=== PATIENT | male | born 1955 | race Hispanic/Latino ===

== ENCOUNTER 2020-11-08 19:34 | Emergency (ER) | payer MEDICARE ==
[~2020-11-08] VITALS: Ht 167.6 cm; Wt 81.6 kg
== END 2020-11-08 22:41 | disposition home or self-care (01) ==
LOC: ER 20:33
DX: S00.83XA Contusion of other part of head, initial encounter (principal); W18.30XA Fall on same level, unspecified, initial encounter; I10 Essential (primary) hypertension; E11.9 Type 2 diabetes mellitus without complications; F20.9 Schizophrenia, unspecified; F17.210 Nicotine dependence, cigarettes, uncomplicated
CPT/HCPCS: 70450; 72125; 99283

== ENCOUNTER 2020-11-22 15:44 | Inpatient (IN) | payer MEDICARE ==
[~2020-11-22] VITALS: Ht 165.1 cm; Wt 79.8 kg
[2020-11-22] MEDS ORDERED: DEXTROSE 50% SYRINGE 50 ML IV ONE (16:26)
[2020-11-22 16:53] LABS: BASOPHILS % 0.3 % (0.0-1.0); EOSINOPHILS # (AUTO) 0.2 (0.0-0.4); EOSINOPHILS % 1.8 % (0.0-6.0); HEMATOCRIT 43.2 % (38.2-49.6); HEMOGLOBIN 15.3 g/dL (14.0-18.0); LYMPHOCYTES # (AUTO) 2.4 (1.0-3.2); LYMPHOCYTES % 22.9 % (18.0-39.1); MEAN CORPUSCULAR HEMOGLOBIN 32.6 pg (28-32); MEAN CORPUSCULAR HGB CONC 35.4 g/dL (31-35); MEAN CORPUSCULAR VOLUME 91.9 fL (81-99); MONOCYTES # (AUTO) 1.1 (0.2-0.8); NEUTROPHILS # (AUTO) 6.6 (2.1-6.9); NEUTROPHILS % 63.7 % (38.7-80.0); PLATELET COUNT 158 x10e3/uL (140-360)
[2020-11-22 17:07] LABS: ALBUMIN 3.8 g/dL (3.5-5.0); ALBUMIN/GLOBULIN RATIO 1.1 (0.8-2.0); ANION GAP 15.8 mmol/L (8-16); CREATININE, SERUM 0.71 mg/dL (0.72-1.25)
[2020-11-22] MEDS: DEXTROSE 5%/0.45% SOD CHL 1,000 ML IV STA ×2 (17:07→18:00)
[2020-11-22 17:09] LABS: POTASSIUM 2.8 mmol/L (3.5-5.1)
[2020-11-22 17:13] LABS: CREATINE KINASE MB 1.6 ng/mL (0-5.0)
[2020-11-22] MEDS ORDERED: POTASSIUM CHLORIDE 20MEQ/100ML 100 ML IV ONE (17:45)
[2020-11-22] MEDS ORDERED: POTASSIUM CHLORIDE 20 MEQ TAB CR PO ONE (17:45)
[2020-11-22] MEDS: LORAZEPAM INJ 2 MG/ML VIAL IV PRN (21:14)
[2020-11-22] MEDS ORDERED: DEXTROSE 50% SYRINGE 50 ML IV STA (23:59)
[2020-11-23] VITALS (10 sets, daily range): BP systolic 133–170; BP diastolic 80–96
[2020-11-23] MEDS ORDERED: DEXTROSE 50% SYRINGE 50 ML IV ONE (00:01)
[2020-11-23] MEDS ORDERED: DEXTROSE 5%/0.45% SOD CHL 1,000 ML IV ONE (03:30)
[2020-11-23] MEDS: LORAZEPAM INJ 2 MG/ML VIAL IV PRN ×2 (04:01→17:01)
[2020-11-23] MEDS: DEXTROSE 5%/0.45% SOD CHL 1,000 ML IV SCH ×3 (04:20→20:00)
[2020-11-23 04:42] LABS: BASOPHILS % 0.6 % (0.0-1.0); EOSINOPHILS # (AUTO) 0.4 (0.0-0.4); EOSINOPHILS % 5.3 % (0.0-6.0); HEMOGLOBIN 13.8 g/dL (14.0-18.0); LYMPHOCYTES # (AUTO) 1.7 (1.0-3.2); LYMPHOCYTES % 24.7 % (18.0-39.1); MEAN CORPUSCULAR HEMOGLOBIN 33.1 pg (28-32); MEAN CORPUSCULAR HGB CONC 35.4 g/dL (31-35); MEAN CORPUSCULAR VOLUME 93.5 fL (81-99); MONOCYTES # (AUTO) 0.8 (0.2-0.8); MONOCYTES % 11.8 % (4.4-11.3); NEUTROPHILS % 57.3 % (38.7-80.0); PLATELET COUNT 134 x10e3/uL (140-360); RED BLOOD COUNT 4.17 x10e6/uL (4.3-5.7); RED CELL DISTRIBUTION WIDTH 14.4 % (11.7-14.4)
[2020-11-23 04:57] LABS: ANION GAP 11.5 mmol/L (8-16); CALCIUM 7.9 mg/dL (8.4-10.2); CREATININE, SERUM 0.66 mg/dL (0.72-1.25); POTASSIUM 3.5 mmol/L (3.5-5.1)
[2020-11-23 05:15] LABS: CREATINE KINASE MB 1.3 ng/mL (0-5.0)
[2020-11-23] MEDS ORDERED: HALDOL5 MG/1 ML IV (11:10)
[2020-11-23] MEDS ORDERED: LOSARTAN POTAS100 MG PO (11:10)
[2020-11-23] MEDS ORDERED: AMLODIPINE BESYL5 MG PO (11:10)
[2020-11-23] MEDS ORDERED: LOVASTATIN20 MG (11:10)
[2020-11-23 14:13] LABS: CREATINE KINASE MB 1.6 ng/mL (0-5.0)
[2020-11-23] MEDS ORDERED: LIDOCAINE 4% PATCH TP PRN (14:15)
[2020-11-23] MEDS ORDERED: HYDRALAZINE HCL 20 MG/ML VIAL IV PRN (14:15)
[2020-11-23] MEDS ORDERED: ONDANSETRON HCL INJ 2MG/ML 2ML 2 MG/ML VIAL IV PRN (14:15)
[2020-11-23] MEDS ORDERED: ACETAMINOPHEN 325 MG TAB PO PRN (14:15)
[2020-11-23] MEDS ORDERED: DIPHENHYDRAMINE HCL 25 MG CAP PO PRN (14:15)
[2020-11-23] MEDS ORDERED: POTASSIUM CHLORIDE 20 MEQ TAB CR PO PRN (14:15)
[2020-11-23] MEDS ORDERED: DEXTROSE 50% SYRINGE 50 ML IV PRN ×2 (14:15→14:30)
[2020-11-23] MEDS ORDERED: ALBUTEROL/IPRATROPIUM 3 ML NEB NEB PRN (14:15)
[2020-11-23] MEDS ORDERED: BENZONATATE 100 MG CAP PO PRN (14:15)
[2020-11-23] MEDS ORDERED: DOCUSATE SODIUM 100 MG CAP PO PRN (14:15)
[2020-11-23 14:54] LABS: FREE T4 (FREE THYROXINE) 1.14 ng/dL (0.8-1.8); THYROID STIMULATING HORMONE 0.803 uIU/mL (0.350-4.940)
[2020-11-23] MEDS: INSULIN LISPRO 100 UNIT/1 ML 3ML VIAL SQ SCH ×2 (16:15→21:00)
[2020-11-23] MEDS ORDERED: INSULIN LISPRO 100 UNIT/1 ML 3ML VIAL SQ SCH (16:30)
[2020-11-23 17:32] LABS: ALBUMIN 3.4 g/dL (3.5-5.0); ALBUMIN/GLOBULIN RATIO 1.1 (0.8-2.0); ANION GAP 11.6 mmol/L (8-16); CALCIUM 8.2 mg/dL (8.4-10.2); CREATININE, SERUM 0.71 mg/dL (0.72-1.25); POTASSIUM 3.6 mmol/L (3.5-5.1)
[2020-11-23] MEDS: NICOTINE 21 MG/EA PATCH TOP PRN (18:08)
[2020-11-23] MEDS ORDERED: METOPROLOL TARTRATE 25 MG TAB PO SCH (18:30)
[2020-11-23] MEDS: METOPROLOL TARTRATE 25 MG TAB PO SCH (20:05)
[2020-11-23 20:50] LABS: COLOR,URINE YELLOW (YELLOW)
[2020-11-23 20:51] LABS: CLARITY,URINE CLEAR (CLEAR); KETONES,URINE NEGATIVE (NEGATIVE); LEUKOCYTE ESTERASE ,URINE NEGATIVE (NEGATIVE); NITRITE,URINE NEGATIVE (NEGATIVE); PROTEIN,URINE DIPSTICK 2+ (NEGATIVE); URINE UROBILINOGEN 1 mg/dL (0.2 - 1)
[2020-11-23 20:56] LABS: RBC,URINE 0-5 /HPF (0-5); WBC,URINE (MAN) 0-5 /HPF (0-5)
[2020-11-23] MEDS ORDERED: MELATONIN 5 MG TABLET PO PRN (21:00)
[2020-11-24] VITALS (7 sets, daily range): BP systolic 132–169; BP diastolic 73–97
[2020-11-24] MEDS: DEXTROSE 5%/0.45% SOD CHL 1,000 ML IV SCH ×2 (04:16→12:00)
[2020-11-24] MEDS: LORAZEPAM INJ 2 MG/ML VIAL IV PRN (04:30)
[2020-11-24 05:04] LABS: BASOPHILS % 0.5 % (0.0-1.0); EOSINOPHILS # (AUTO) 0.5 (0.0-0.4); HEMATOCRIT 39.4 % (38.2-49.6); LYMPHOCYTES # (AUTO) 1.7 (1.0-3.2); MEAN CORPUSCULAR HGB CONC 35.5 g/dL (31-35); MEAN CORPUSCULAR VOLUME 92.9 fL (81-99); MONOCYTES # (AUTO) 0.7 (0.2-0.8); MONOCYTES % 11.7 % (4.4-11.3); NEUTROPHILS % 51.6 % (38.7-80.0); PLATELET COUNT 139 x10e3/uL (140-360); RED BLOOD COUNT 4.24 x10e6/uL (4.3-5.7); RED CELL DISTRIBUTION WIDTH 13.9 % (11.7-14.4)
[2020-11-24 05:32] LABS: ANION GAP 13.4 mmol/L (8-16); CHOL/HDL RATIO 1.6 (3.9-4.7); CREATININE, SERUM 0.71 mg/dL (0.72-1.25); POTASSIUM 3.4 mmol/L (3.5-5.1)
[2020-11-24 05:54] LABS: THYROID STIMULATING HORMONE 1.33 uIU/mL (0.350-4.940)
[2020-11-24] MEDS: INSULIN LISPRO 100 UNIT/1 ML 3ML VIAL SQ SCH ×4 (07:30→20:43)
[2020-11-24] MEDS: PANTOPRAZOLE SOD 40 MG TABEC PO SCH (07:50)
[2020-11-24] MEDS: METOPROLOL TARTRATE 25 MG TAB PO SCH ×2 (09:00→20:50)
[2020-11-25] VITALS (7 sets, daily range): BP systolic 145–163; BP diastolic 70–100
[2020-11-25] MEDS: DEXTROSE 5%/0.45% SOD CHL 1,000 ML IV SCH ×2 (02:30→12:12)
[2020-11-25] MEDS: INSULIN LISPRO 100 UNIT/1 ML 3ML VIAL SQ SCH ×4 (07:30→19:36)
[2020-11-25] MEDS: METOPROLOL TARTRATE 25 MG TAB PO SCH ×2 (08:03→20:54)
[2020-11-25] MEDS: PANTOPRAZOLE SOD 40 MG TABEC PO SCH (08:04)
[2020-11-26] VITALS (8 sets, daily range): BP systolic 146–166; BP diastolic 68–99
[2020-11-26] MEDS: INSULIN LISPRO 100 UNIT/1 ML 3ML VIAL SQ SCH ×4 (07:30→20:37)
[2020-11-26] MEDS: METOPROLOL TARTRATE 25 MG TAB PO SCH ×2 (08:08→20:41)
[2020-11-26] MEDS: PANTOPRAZOLE SOD 40 MG TABEC PO SCH (08:09)
[2020-11-26] MEDS ORDERED: NICOTINE 14 MG/EA PATCH TOP PRN (19:30)
[2020-11-26] MEDS: NICOTINE 21 MG/EA PATCH TOP PRN (19:45)
[2020-11-27] VITALS (7 sets, daily range): BP systolic 139–173; BP diastolic 82–96
[2020-11-27] MEDS: INSULIN LISPRO 100 UNIT/1 ML 3ML VIAL SQ SCH ×5 (07:23→20:10)
[2020-11-27] MEDS: METOPROLOL TARTRATE 25 MG TAB PO SCH ×2 (07:41→13:00)
[2020-11-27] MEDS: PANTOPRAZOLE SOD 40 MG TABEC PO SCH (08:05)
[2020-11-27] MEDS: LORAZEPAM INJ 2 MG/ML VIAL IV PRN (19:22)
[2020-11-27] MEDS: NICOTINE 21 MG/EA PATCH TOP PRN (19:22)
[2020-11-28] VITALS (7 sets, daily range): BP systolic 124–175; BP diastolic 85–99
[2020-11-28] MEDS: PANTOPRAZOLE SOD 40 MG TABEC PO SCH (07:30)
[2020-11-28] MEDS: INSULIN LISPRO 100 UNIT/1 ML 3ML VIAL SQ SCH ×4 (07:30→20:54)
[2020-11-28] MEDS: METOPROLOL TARTRATE 25 MG TAB PO SCH (09:00)
[2020-11-28] MEDS ORDERED: ONDANSETRON HCL 4 MG ORAL DISINTEGRATING TAB PO PRN (11:45)
[2020-11-28] MEDS: LOSARTAN POTASSIUM 100 MG TAB PO SCH (14:33)
[2020-11-29] VITALS: BP 122/76
[2020-11-29 04:00] VITALS: BP 148/97
[2020-11-29 06:48] LABS: ANION GAP 8.9 mmol/L (8-16); CALCIUM 8.6 mg/dL (8.4-10.2); CREATININE, SERUM 0.84 mg/dL (0.72-1.25); POTASSIUM 3.9 mmol/L (3.5-5.1)
[2020-11-29 07:25] VITALS: BP 164/80
[2020-11-29] MEDS: PANTOPRAZOLE SOD 40 MG TABEC PO SCH (07:30)
[2020-11-29] MEDS: INSULIN LISPRO 100 UNIT/1 ML 3ML VIAL SQ SCH ×2 (07:30→11:24)
[2020-11-29 08:29] VITALS: BP 164/80
[2020-11-29] MEDS: LOSARTAN POTASSIUM 100 MG TAB PO SCH (08:47)
[2020-11-29 11:25] VITALS: BP 145/82
[2020-11-30] MEDS ORDERED: SITAGLIPTIN 100 MG TAB PO SCH (09:00)
== END 2020-11-29 15:20 | disposition home or self-care (01) | DRG 639 ==
LOC: ER 16:55 → ERHOLD 17:25 → ICU 11-23 07:15 → IMCU 11-23 23:27 → MED/SURG 11-25 15:04 → MED/SURG3 11-28 18:38
PROVIDERS: ADMIT Internal Medicine; ATTEND Internal Medicine
DX: E11.649 Type 2 diabetes mellitus with hypoglycemia without coma (principal); F99 Mental disorder, not otherwise specified; I10 Essential (primary) hypertension; T50.915A Adverse effect of multiple unspecified drugs, medicaments and biological substances, initial encounter; I49.3 Ventricular premature depolarization; E78.5 Hyperlipidemia, unspecified; E11.42 Type 2 diabetes mellitus with diabetic polyneuropathy; Z79.899 Other long term (current) drug therapy; F20.9 Schizophrenia, unspecified; Z86.73 Personal history of transient ischemic attack (TIA), and cerebral infarction without residual deficits; Z20.822 Contact with and (suspected) exposure to COVID-19
CPT/HCPCS: 36415; 71045; 80048; 80053; 80061; 81001; 82550; 82553; 82948; 83036; 83735; 84100; 84439; 84443; 84484; 85025; 93005; 93306; 97139; 99284; J2060; J3480; J7799; U0002

== ENCOUNTER → 2024-04-21 | Outpatient (REF) | payer MEDICARE ==
[~2024-04-21] MED LIST: AMLODIPINE BESYL5 MG PO; HALDOL5 MG/1 ML IV; IOPAMIDOL 370 MG/ML 100 ML INFUS..BTL INJ ONE; LOSARTAN POTAS100 MG PO; LOVASTATIN20 MG; NITROGLYCERIN 0.4 MG SUBL ONE; SODIUM CHLORIDE 0.9% 100 ML ONE
[2024-04-21 11:09] LABS: CREATININE, SERUM 1.2 mg/dL (0.72-1.25)
== END ==
LOC: CT 10:16
PROVIDERS: ATTEND Internal Medicine Cardiovascular Disease
DX: I25.10 Atherosclerotic heart disease of native coronary artery without angina pectoris (principal); I49.3 Ventricular premature depolarization
CPT/HCPCS: 36415; 75574; 75580; 82565; 84520; J7050; Q9967

== ENCOUNTER → 2024-07-02 | Day surgery (SDC) | payer MEDICARE ==
[2024-06-30 11:42] LABS: BASOPHILS # (AUTO) 0.1 (0.0-0.1); BASOPHILS % 0.9 % (0.0-1.0); EOSINOPHILS # (AUTO) 0.4 (0.0-0.4); EOSINOPHILS % 6.7 % (0.0-6.0); HEMATOCRIT 49.1 % (38.2-49.6); HEMOGLOBIN 17.1 g/dL (14.0-18.0); LYMPHOCYTES % 34.8 % (18.0-39.1); MEAN CORPUSCULAR HEMOGLOBIN 33.6 pg (28-32); MEAN CORPUSCULAR HGB CONC 34.8 g/dL (31-35); MEAN CORPUSCULAR VOLUME 96.5 fL (81-99); MONOCYTES # (AUTO) 0.5 (0.2-0.8); NEUTROPHILS # (AUTO) 2.9 (2.1-6.9); NEUTROPHILS % 49.3 % (38.7-80.0); PLATELET COUNT 129 x10e3/uL (140-360); RED BLOOD COUNT 5.09 x10e6/uL (4.3-5.7); RED CELL DISTRIBUTION WIDTH 12.9 % (11.7-14.4); WHITE BLOOD COUNT 5.86 x10e3/uL (4.8-10.8)
[2024-06-30 11:59] LABS: INR 0.88; PROTHROMBIN TIME 12.5 seconds (11.9-14.5)
[2024-06-30 12:06] LABS: ALBUMIN 3.5 g/dL (3.5-5.0); ALBUMIN/GLOBULIN RATIO 0.9 (0.8-2.0); ANION GAP 12.9 mmol/L (8-16); BILIRUBIN,TOTAL 0.4 mg/dL (0.2-1.2); CALCIUM 9.2 mg/dL (8.4-10.2); CREATININE, SERUM 0.96 mg/dL (0.72-1.25); POTASSIUM 3.9 mmol/L (3.5-5.1); TOTAL PROTEIN 7.4 g/dL (6.5-8.1)
[~2024-07-02] VITALS: Ht 167.6 cm; Wt 71.7 kg
[2024-07-02] VITALS (10 sets, daily range): BP systolic 111–156; BP diastolic 71–97; PULSE 55–65; RESP 13–21; TEMP 97.1–98.4; O2SAT 98–100
[~2024-07-02] MED LIST changes: +AVAPRO300 MG PO; +BENZTROPINE2 MG/2 ML PO; +FENTANYL CITRATE/PF 100MCG/2 ML INJ ONE; +HALOPERIDO100 MG/11 IJ; +HALOPERIDOL1 MG PO; +HEPARIN SOD (PORCINE) 1000 UNIT/ML 30ML ONE; +HEPARIN SOD/SOD CHLORIDE 2,000 ML ONE; +IBUPROFEN600 MG PO; +JANUVIA100 MG PO; +JARDIANCE10 MG PO; +LIDOCAINE HCL 2% LOCAL 20 ML VIAL ONE; +METOPROLOL SUCC50 MG PO; +MIDAZOLAM HCL 2 MG/2 ML VIAL ONE; +NEURONTIN300 MG PO; -NITROGLYCERIN 0.4 MG SUBL ONE; +NITROGLYCERIN/D5W 200 MCG/ML 250 ML ONE; -SODIUM CHLORIDE 0.9% 100 ML ONE; +SODIUM CHLORIDE 0.9% 1000ML 1,000 ML ONE; +VERAPAMIL HCL 2.5 MG/ML 2 ML VIAL ONE; +VITAMIN E400 UNI1 PO
== END | disposition home or self-care (01) ==
LOC: CATH LAB 07:00
PROVIDERS: ATTEND Internal Medicine Cardiovascular Disease
DX: I25.10 Atherosclerotic heart disease of native coronary artery without angina pectoris (principal); I49.3 Ventricular premature depolarization; I10 Essential (primary) hypertension; Z71.89 Other specified counseling; E78.5 Hyperlipidemia, unspecified; E11.9 Type 2 diabetes mellitus without complications; F20.9 Schizophrenia, unspecified; F17.210 Nicotine dependence, cigarettes, uncomplicated; Z71.6 Tobacco abuse counseling; Z01.812 Encounter for preprocedural laboratory examination; Z79.1 Long term (current) use of non-steroidal anti-inflammatories (NSAID); Z79.84 Long term (current) use of oral hypoglycemic drugs; Z79.899 Other long term (current) drug therapy; Z82.49 Family history of ischemic heart disease and other diseases of the circulatory system; Z83.3 Family history of diabetes mellitus
CPT/HCPCS: 36415 ×2; 76937; 80053; 82948; 85025; 85610; 93458; C1769; C1887; J1644; J2003; J2250; J3010; J7030; Q9967; 93454; 99152; 99153